=== PATIENT | female | born 1965 | race Caucasian/White ===

== ENCOUNTER 2025-01-09 07:10 | Outpatient (CLI) | payer OTHER, SELFPAY ==
[2025-01-09 08:01] LABS: Alanine Aminotransferase 22 U/L (6-35); Albumin Level 4.0 g/dL (3.5-5.1); Alkaline Phosphatase 159 U/L (38-126); Anion Gap 7 mmol/L (4-12); Aspartate Amino Transferase 35 U/L (14-36); Bilirubin,Total 0.4 mg/dL (0.2-1.3); Blood Urea Nitrogen 15 mg/dL (7-17); Calcium 9.5 mg/dL (8.4-10.2); Carbon Dioxide 25 mmol/L (22-30); Chloride 108 mmol/L (98-107); Cholesterol 227 mg/dL (0-200); Estimated Glomerular Filt Rate > 60; Glucose 100 mg/dL (65-110); HDL Direct 59 mg/dL; Potassium 3.7 mmol/L (3.4-5.0); Sodium 140 mmol/L (137-145); Total Protein 7.1 g/dL (6.3-8.2); Triglycerides 104 mg/dL (<150)
[2025-01-09 08:37] LABS: Thyroid Stimulating Hormone 0.065 uIU/mL (0.465-4.680)
[2025-01-09 08:59] LABS: Hemoglobin A1C 5.3 % (<5.7)
[2025-01-09 09:01] LABS: MALB Creatinine Ratio 8.4 mg/g (0-30)
== END 2025-01-09 07:11 | disposition home or self-care (01) ==
PROVIDERS: PCP Emergency Medicine; Visit Provider Emergency Medicine
DX: E78.5 Hyperlipidemia, unspecified (principal); E11.9 Type 2 diabetes mellitus without complications; Z13.220 Encounter for screening for lipoid disorders; Z13.6 Encounter for screening for cardiovascular disorders; E55.9 Vitamin D deficiency, unspecified; R53.83 Other fatigue; E78.00 Pure hypercholesterolemia, unspecified; R10.9 Unspecified abdominal pain
CPT/HCPCS: 36415; 80053; 80061; 82043; 82172; 82306; 83013; 83036; 83695; 84443

== ENCOUNTER 2025-02-05 09:52 | Outpatient (CLI) | payer OTHER, SELFPAY ==
--- NOTE | ~2025-02-05 | MM_ITS ---
EXAMINATION: MM screening burt BI w rocco HISTORY: Screening TECHNIQUE: Craniocaudal and mediolateral oblique 3-D tomosynthesis images were obtained and synthetic 2-D images were generated. CAD analysis was submitted and interpreted. COMPARISON: No prior mammogram is available for comparison at this institution. BREAST PARENCHYMAL COMPOSITION: The breasts are heterogeneously dense, which may obscure small masses. FINDINGS: There is no evidence of suspicious mass, calcification, or architectural distortion to suggest malignancy. IMPRESSION: 1. No mammographic evidence of malignancy. Recommend routine screening mammography in one year. BI-RADS Category 2: Benign finding(s) Reviewed, dictated and finalized at location Q. IMPRESSION: 1. No mammographic evidence of malignancy. Recommend routine screening mammogra phy in one year. BI-RADS Category 2: Benign finding(s)
--- OUTSIDE RECORDS SUMMARY | 2025-02-05 11:20 | XMS_ITS | Clinical Summary ---
Author Organization [facility] Address [address] [place] [phone] Phone Care Team Providers Care Assistant Chief Train Dispatcher Name Role Phone Neeta Lara MD Primary Care Provider [phone] Allergies Active Allergy Reactions Criticality Noted Date Comments Sulfamethoxazole-Trimethoprim Rash Medium 2018 Codeine Nausea only Low 08/22/2005 Medications multivitamin capsule Take 1 capsule by mouth daily Active levothyroxine (SYNTHROID) 112 mcg tabletIndications: Acquired hypothyroidism Take 1 tablet (112 mcg total) by mouth rn enterostomal before breakfast 90 tablet 2 4 Active citalopram (CeleXA) 20 mg tabletIndications: Anxiety Take 1 tablet (20 mg total) by mouth daily 90 tablet 2 4 Active albuterol HFA (PROVENTIL HFA,VENTOLIN HFA,PROAIR HFA) 90 mcg/actuation inhalerIndications :Mild intermittent asthma without complication Inhale 2 puffs every 4 (four) hours as needed for wheezing or shortness of breath 1 each 5 4 Active Active Problems Problem Noted Date Diagnosed Date Abnormal LFTs (liver function tests) 02/20/2019 Cysts of both ovaries 02/20/2019 Enlarged uterus 02/20/2019 Osteoarthritis 02/20/2019 Positive PPD, treated 02/20/2019 Depression with anxiety 02/20/2019 Elevated blood-pressure read ing, without diagnosis of hypertension 02/20/2019 Primary localized osteoarthrosis of ankle and fo ot 08/22/2005 Acquired hypothyroidism 03/04/2003 Allergic rhinitis 03/04/2003 Resolved Problems Problem Noted Date Diagnosed Date Resolved Date Abnormal urine 02/20/2019 02/20/2019 Other abnormal and inconclus jessica findings on diagnostic imaging of breast 02/20/2019 02/20/2019 Encounter for immunization 08/27/2015 1 Episodic mood disorder 11/17/201202/20 Anemia 01/12/2009 02/20/2019 Need for immunization against influenza 01/12/2009 02/20/2019 Abnormal weight gain 04/04/2007 019 Candidal vulvovaginitis 02/01/200701/24 Anxiety 08/22/2005 02/20/2019 Menstrual disorder 03/04/2003 9 Screening for malignant neoplasm of cervix 03/04/2003 02/20/2019 Immunizations Immunization Administration Dates Next Due Influenza, Unspecified 12/23/2022,2019,01/23/2019,2017 Pfizer SARS-CoV-2 Monovalent Vaccination (12+ Yrs) PURPLE 06/22/2021,05/04/2020,04/13/2020 Pneumococcal Conjugate Pcv20 12/21/2023 Tdap 08/27/2015 ZOSTER Recombinant 08/12/2020,02/20/2019 Surgical History Surgery Date Site/Laterality Comments SECTION section OTHER SURGICAL HISTORY Exc Cyst R shoulder 05/05/14 BREAST BIOPSY Right [id number] PT NOT SURE BREAST LUMPECTOMY Right lumpectomy Medical History Medical History Date Comments Arthritis Arthritis Hx Other Medical breast lumps Family History Medical History Relation Name Comments Alcohol abuse Brother 1 Heart disease Brother 2 Diabetes Father Lung cancer Father Bladder Cancer Maternal Grandfather No Known Problems Maternal Grandmother ho spitalized Heart disease Mother Hypertension Mother Stroke Paternal Grandfather Diabetes Paternal Grandmother Stroke Paternal Grandmother Breast cancer Neg Hx Endometrial cancer Neg Hx Ovarian cancer Neg Hx Thyroid cancer Neg Hx Relation Name Status Comments Brother 1 (Age 57) Brother 2 Alive Brother 3 Alive Brother 4 Alive Father (Age 80) Maternal Grandfather Maternal Grandmother Mother (Age 77) Paternal Grandfather Paternal Grandmother Sister Alive Social History Tobacco Use Types Packs/Day Years Used Date Smoking Tobacco: Never Smokeless Tobacco: Never Tobacco Cessation:Counseling Given: Not Answered Alcohol Use Standard Drinks/Week Comments Yes 0 (1 standard drink = 0.6 oz pur e alcohol) AUDIT-C Answer Date Recorded Q1: How often do you have a drink containing alc ohol? Monthly or less 12/21/2023 Q2: How many drinks containi ng alcohol do you have on a typical day when you are drinking? 1 or 2 12/21/2023 Q3: How often do you have si x or more drinks on one occasion? 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 Gender Identity Female 03/08/2021 2:48 PM ASSEMBLER KNIFE Sexual Orientation Not on file Obstetrics History Para Term AB IAB SAB Ectopic Multiple Livin g Live Births 2 2 2 Date Outcome GA Total Labor Labor/2nd/3rd Weight Sex Type Anes PTL Ruthie A1 A5 Name Clin Term Term Last Filed Vital Signs Vital Sign Reading Time Taken Comments Blood Pressure 130/80 12/21/2023 10:03 AM CDT Pulse 73 12/21/2023 10:03 AM CDT Temperature 36.8 C (98.3 F) 12/21/2023 10:03 AM CDT Respiratory Rate 20 12/21/2023 10:03 AM CDT Oxygen Saturation 96% 12/21/2023 10:03 AM CDT Inhaled Oxygen Concentration - - Weight 68.6 kg (151 lb 3.2 oz) 12/21/2023 10:03 AM CDT Height 155 cm (5' 1.02) 12/21/2023 10:03 AM CDT Body Mass Index 28.55 12/21/2023 10:03 AM CDT Plan of Treatment Health Maintenance Due Date Last Done Comments Hepatitis B Screening 1981 Cervical Cancer Screening 06/19/2020 06/19/2019, 10/2017 Colon Cancer Screening-DNA Stool 03/20/2022 03/20/20 19 Breast Cancer Screening-Mammogram 12/16/2022 12/16/2021, 05/13/2020, 03/01/2019, Additional history exists Depression Screening 12/20/2024 12/21/2023, 12/19/2022, 12/15/2021, Additional history exists Regular Well Visit/Exam 18-64 12/20/2024, 12/19/2022, 12/15/2021, Additional history exists Covid-19 Vaccine (4 - 2024-2 6 season) 2024 06/22/2021, 05/04/2020, 04/13/2020 Influenza Vaccine (#1) 2024 3, 12/23/2022, 01/27/2020, Additional history exists DTaP/Tdap/Td Vaccine (3 - Td or Tdap) 03/03/2029 03/03/2019, 08/27/2015 Hepatitis C Screening Completed 02/20/2019 Zoster Vaccine Completed 08/12/2020, 02/20/2019 Pneumococcal vaccine <65 Completed 12/21/2023 Procedures Procedure Name Priority Date/Time Associated Diagnosis Comments SCREENING MAMMOGRAM BILATERAL W SYLVESTER Schedule Routine, Read Routine (OP Routine) 12/16/2021 8:50 AM CDT Screening mammogram, encounter for HM PAP SMEAR WITH HPV Routine 06/19/2019 STOOL DNA COLOGUARD Routine 03/20/2019 HEPATITIS C ANTIBODY Routine 02/20/2019 10:28 AM CDT Annual physical exam Encounter for hepatitis C screening test for low risk patient from Last 3 Months or Most Recently Relevant to Health Maintenance Results * (ABNORMAL) Screening Mammogram Bilateral W Sylvester (12/16/2021 8:50 AM CDT) Anatomical Region Laterality Modality Breast Bilateral Mammography 12/16/2021 8:58 AM CDT Impressions 12/16/2021 8:58 AM CDT Right breast focal asymmetry. FINAL ASSESSMENT: BI-RADS Category 0: Incomplete - Need Additional Imaging Evaluation. RECOMMENDATION: Findings in the right breast require additional evaluation. Diagnostic mammogram and possible ultrasound images of the right breast are recommended at this time. Electronically signed by: Valente De Santiago II, D.O. Narrative 12/16/2021 8:58 AM CDT EXAMINATION: BILATERAL SCREENING MAMMOGRAM COMPARISON: Multiple prior studies, most recently 05/13/2020 and dating back to 10/08/2015. TECHNIQUE: Full-field 2D and digital breast tomosynthesis (DBT) images were obtained. CAD was utilized. BREAST PARENCHYMAL COMPOSITION: There are scattered areas of fibroglandular density. FINDINGS: There is no suspicious mass, calcification, or distortion in right breast. There is a focal asymmetry in the upper outer quadrant of the right breast approximately 4.9 cm in the nipple. There has been no significant interval change from the prior study. Self Screening Mammogram IMG MAMMO PROCEDURES Fi nal Result * PAP SMEAR WITH HPV (06/19/2019) Pap smear Normal Historical Provider HEALTH MAINTENANCE Final Result * Stool DNA - Cologuard (03/20/2019) Stool Andrea Dey NP LAB BODY FLUIDS AND STOOLS ORDERABLES Final Result * Hepatitis C antibody (02/20/2019 10:28 AM CDT) Hep C Ab Negative Negative MARIE SMITH Blood specimen (specimen) 02/20/2019 10:28 AM CDT 02/20/2019 11:06 AM CDT Andrea Dey NP LAB MICROBIOLOGY - GENERAL ORDERABLES Final Result MARIE [id number] [address] Department [place] [address] from Last 3 Months or Most Recently Relevant to Health Maintenance Insurance [employer] [place] Care Teams Assistant Chief Train Dispatcher Relationship Specialty Start Date End Date Neeta Lara MD [address] [place] [address] [address] [facility] [place] [address] PCP - General Internal Medicine 08/12/20
--- OUTSIDE RECORDS SUMMARY | 2025-02-05 11:20 | XMS_ITS | Encounter Summary ---
Author Organization [facility] Address [address] [place] [address] Phone Care Team Providers Care Group Director Name Role Phone Joseph Thompson MD Primary Care Provider [phone] Jacquelyn Saucedo NP Primary Care Provider [phone] Andrea Dey CHIEF SOLUTION ARCHITECT Primary Care Provi belén Neeta Lara MD Primary Care Provider [phone] Encounter Details Date Type Department Care Team (Late st Contact Info) Description 08/28/2017 Orders Only [facility] ProviderD[facility] MD [address] [place] [address] Social History Tobacco Use Types Packs/Day Years Used Date Smoking Tobacco: Never Alcohol Use Standard Drinks/Week Comments Yes 0 (1 standard drink = 0.6 oz pur e alcohol) Comments Unknown Sex and Gender Information Value Date Recorded Sex Assigned at Not on file Legal Sex Female 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 us Historical Provider LAB CYTOLOGY ORDERABLES F inal Result documented in this encounter Visit Diagnoses Not on filedocumented in this encounter Additional Health Concerns Infection Onset Date Last Indicated Resolved Time COVID: Suspected 11/04/2019 11/04/2019 11/06/2019 2:01 AM CDT Respiratory Infection (BRANDYN), contact + droplet Comment:Automatically added due to negative COVID-19 result. 11/06/2019 11/06/2019 11/20/2019 3:0 5 AM CDT documented as of this encounter Care Teams Group Director Relationship Specialty Start Date End Date Joseph Thompson MD [address] [place] [id number] PCP - General 06/06/14 01/27/19 Jacquelyn Saucedo NP [address] [place] [id number] PCP - General Family Medicine 01/28/19 02/19/19 Andrea Dey NP [address] [place] [address] PCP - General Family Practice 02/20/19 08/11/20 Neeta Lara MD [address] [place] [address], [place] [address] PCP - General Internal Medicine 08/12/20 documented as of this encounter
== END 2025-02-05 09:53 | disposition home or self-care (01) ==
PROVIDERS: PCP Emergency Medicine; Visit Provider Emergency Medicine
DX: Z12.31 Encounter for screening mammogram for malignant neoplasm of breast (principal)
CPT/HCPCS: 77063; 77067

== ENCOUNTER 2025-03-10 12:55 | Emergency (ER) | payer OTHER, SELFPAY ==
--- NOTE | ~2025-03-10 | XR_ITS ---
Examination: XR chest 2V Clinical History: chest pain Comparison: None Technique: PA and Lateral Findings: Cardiomediastinal silhouette normal size and configuration. Lungs clear. No acute bony abnormality. IMPRESSION: 1. No acute cardiopulmonary findings. Reviewed, dictated and finalized at location [facility] [employer]
--- NOTE | 2025-03-10 13:08 | ECG_ITS ---
Test Date: 2025-03-10 13:26:08 Measurements Intervals [place] Rate: 68 P: 41 NH: 172 QRS: -56 QRSD: 102 T: 145 QT: 414 QTc: 443 Interpretive Statements SINUS RHYTHM Poor R wave progression PROBABLE INFERIOR MYOCARDIAL INFARCTION , PROBABLY OLD [35 ms Q WAVE IN II/aVF] No previous ECG available for comparison Electronically Signed On 03-10-2025 13:59:10 SOLAR PROCESS ENGINEER by Brad Hathaway M.D.
[2025-03-10 13:12] VITALS: BP 150/95; PULSE 72; RESP 18; TEMP 36.4; O2SAT 99
--- NOTE | 2025-03-10 13:19 | ED_ITS ---
HPI - Chest Pain General Chief Complaint: Chest Pain <CORRINA Tafoya Last Filed: 03/10/25 13:29> Stated Complaint: chest pain today <CORRINA Tafoya Last Filed: 03/10/25 13:29> Time Seen by Provider: 03/10/25 13:10 <CORRINA Tafoya Last Filed: 03/10/25 13:29> Focused HPI: Patient is a 59 y/o female, with PMH of hypothyroidism, who presents to the ED with c/o CP. Patient reports she was at work around 8 am this morning when she developed substernal chest pain. Described as a pressure/squeezing sensation. Denies radiation of pain. Denies aggravating/alleviating factors, strenuous activity. Denies SOB, N/V, pain/swelling in legs. Denies hx of HTN, HLD, DM, smoking Hx. Reports hx of heart disease in her parents in their 70s. GENERAL: Well-appearing, well-nourished, and in no acute distress. HEAD: Normocephalic, atraumatic. CHEST: Clear to auscultation. ?No respiratory distress. HEART: Regular rate and rhythm.? NEURO: ?Alert and oriented x3. Patient screened in triage and initial orders placed.? ?Additional care and disposition to be based upon?diagnostic testing and treatment. <CORRINA Tafoya Last Filed: 03/10/25 13:29> Source: patient <CORRINA Tafoya Last Filed: 03/10/25 13:29> Mode of arrival: ambulatory <CORRINA Tafoya Last Filed: 03/10/25 13:29> Limitations: no limitations <CORRINA Tafoya Last Filed: 03/10/25 13:29> History of Present Illness HPI narrative: Agree with above HPI. <TAO Guerrero Last Filed: 03/10/25 19:03> Related Data Home Medications: Home Medications ?Medication ?Instructions ?Recorded ?Confirmed ?Last Taken ?Type albuterol sulfate 90 mcg/actuation 1 puff inhalation Q 6H PRN 12/19/24 01/03/25 Unknown History aerosol inhaler (Ventolin HFA) <Sari Martinez PA-C - Last Filed: 03/10/25 13:29> Allergies/Adverse Reactions: Allergies Allergy/AdvReac Type Severity Reaction Status Date / Time sulfamethoxazole (From Allergy Intermediate Rash Verified 01/03/25 10:28 Sept) trimethoprim (From ) Allergy Intermediate Rash Verified 01/03/25 10:28 <Sari Martinez PA-C - Last Filed: 03/10/25 13:29> Review of Systems 2 Review of Systems: All systems reviewed & are unremarkable except as noted in HPI and below <TAO Guerrero Last Filed: 03/10/25 19:03> PMFSH Past Medical History Medical History: Medical History Thyroid disorder Anxiety Allergies <CORRINA Tafoya Last Filed: 03/10/25 13:29> Surgical History Surgical History: Surgical History History of (~1990) &1997 <CORRINA Tafoya Last Filed: 03/10/25 13:29> Family History Family History: Family History Father History of cancer Mother Heart disease <Sari Martinez PA-C - Last Filed: 03/10/25 13:29> Social History Social History: Social History (Updated 01/03/25 @ 10:30 by Jennifer Chandler MA) Smoking status: Never smoker Alcohol intake: current Substance use: never Substance use type: does not use <CORRINA Tafoya Last Filed: 03/10/25 13:29> Exam 2 Narrative: GENERAL: Well-appearing, well-nourished, and in no acute distress. HEAD: Normocephalic, atraumatic. EYES: PERRLA and EOMI. ENT: Nares clear, no rhinorrhea or epistaxis. Mucous membranes moist. Oropharynx without tonsillar hypertrophy exudate or other lesions. Bilateral TMs pearly kelly non-bulging NECK: Supple. No adenopathy or masses. No carotid bruits or JVD CHEST: Clear to auscultation. No respiratory distress. No wheezes rales or rhonchi HEART: Regular rate and rhythm. No murmur heard. Normal peripheral pulses. ABDOMEN: Soft, nontender, nondistended, normal active bowel sounds. EXTREMITIES: Normal range of motion. No edema. SKIN: Warm, dry, no rash. NEURO: No focal deficits. Alert and oriented x3. PSYCH: Normal mood and affect <TAO Guerrero - Last Filed: 03/10/25 19:03> Course Vital Signs Vital signs: Vital Signs Temperature 97.6 F 03/10/25 13:12 Pulse Rate 72 03/10/25 13:12 Respiratory Rate 18 03/10/25 13:12 Blood Pressure 150/95 H 03/10/25 13:12 Pulse Oximetry 99 03/10/25 13:12 Oxygen Delivery Room Air 03/10/25 13:12 Temperature 97.8 F 03/10/25 14:51 Pulse Rate 72 03/10/25 18:15 Respiratory Rate 16 03/10/25 18:15 Blood Pressure 155/88 H 03/10/25 18:15 Pulse Oximetry 99 03/10/25 18:15 Oxygen Delivery Room Air 03/10/25 18:15 <Sari Martinez PA-C - Last Filed: 03/10/25 13:29> Vital Signs Temperature 97.6 F 03/10/25 13:12 Pulse Rate 72 03/10/25 13:12 Respiratory Rate 18 03/10/25 13:12 Blood Pressure 150/95 H 03/10/25 13:12 Pulse Oximetry 99 03/10/25 13:12 Oxygen Delivery Room Air 03/10/25 13:12 Temperature 97.8 F 03/10/25 14:51 Pulse Rate 72 03/10/25 18:15 Respiratory Rate 16 03/10/25 18:15 Blood Pressure 155/88 H 03/10/25 18:15 Pulse Oximetry 99 03/10/25 18:15 Oxygen Delivery Room Air 03/10/25 18:15 <TAO Guerrero - Last Filed: 03/10/25 19:03> MDM - Chest Pain MDM Narrative Medical decision making narrative: MSE by RICARDO in triage <Sari Martinez PA-C - Last Filed: 03/10/25 13:29> MSE by RICARDO in triage Patient is a 59 y/o female, with PMH of hypothyroidism, who presents to the ED with c/o CP. Patient reports she was at work around 8 am this morning when she developed substernal chest pain. Described as a pressure/squeezing sensation. Denies radiation of pain. Denies aggravating/alleviating factors, strenuous activity. Denies SOB, N/V, pain/swelling in legs. Denies hx of HTN, HLD, DM, smoking Hx. Reports hx of heart disease in her parents in their 70s. Patient's EKGs and labs are without significant high risk changes. EKG w/o acute ischemic changes. Troponin negative. Cardiac risk factors reviewed. HEART score = 2. Patient is felt likely low risk for ACS and reasonable for further risk stratification testing as an outpatient. Pain was not sudden or maximal in onset without tearing or ripping quality. No other signs or symptoms to suggest aortic dissection. A low-risk Wells criteria is noted, PE is felt to be unlikely. No pneumonia seen on evaluation today. Patient is felt to be a reasonable candidate for continued evaluation as an outpatient. Given reasons to return. <TAO Guerrero - Last Filed: 03/10/25 19:03> Medical Records Data Attestation: I reviewed the patient's medical records. <TAO Guerrero - Last Filed: 03/10/25 19:03> Lab Data Attestation: I reviewed the patient's lab results. <TAO Guerrero - Last Filed: 03/10/25 19:03> Result diagrams: 03/10/25 13:17 03/10/25 13:17 <Sari Martinez PA-C - Last Filed: 03/10/25 13:29> Labs: Lab Results 03/10/25 03/10/25 Range/Units 13:17 16:33 WBC 7.9 (4.5-10.0) K/mm3 RBC 5.01 (4.2-5.4) M/mm3 Hgb 14.3 (12.0-15.0) g/dL Hct 42.1 (37.0-47.0) % MCV 84.0 (80-100) fl MCH 28.5 (26-34) pg MCHC 34.0 (32-36) g/dl RDW 13.7 (11.5-14.5) % Plt Count 298 (150-375) k/mm3 MPV 9.1 (7.4-10.4) fl Immature Gran % (Auto) 0.4 (0-0.5) % Neut % (Auto) 62.2 (45.5-73.1) % Lymph % (Auto) 28.0 (18.3-44.2) % [place] % (Auto) 5.9 (2.6-8.5) % Eos % (Auto) 2.9 (0-4.4) % Baso % (Auto) 0.6 (0.2-1.2) % Lymph # (Auto) 2.22 (0.9-3.2) K/mm3 [place] # (Auto) 0.5 (0.1-0.6) K/mm3 Eos # (Auto) 0.2 (0-0.3) K/mm3 Baso # (Auto) 0.1 (0.0-0.1) K/mm3 Abs Immat Gran (auto) 0.03 (0.00-0.031) K/mm3 Absolute Neuts (auto) 4.9 (1.3-6.7) K/mm3 Absolute Nucleated RBC 0.000 (0.0-0.012) K/mm3 Nucleated RBC % 0.0 (0.0-0.2) % PT 11.8 (11.1-14.7) Seconds INR 0.8 APTT 27.3 (22.3-36.8) Seconds Sodium 142 (137-145) mmol/L Potassium 3.2 L (3.4-5.0) mmol/L Chloride 108 H (98-107) mmol/L Carbon Dioxide 24 (22-30) mmol/L Anion Gap 10 (4-12) mmol/L BUN 13 (7-17) mg/dL Creatinine 0.99 (0.7-1.0) mg/dL Estim Creat Clear Calc 49 ml/min Estimated GFR 57 L (59 - ) Glucose 75 (65-110) mg/dL Calcium 9.6 (8.4-10.2) mg/dL Total Bilirubin 0.4 (0.2-1.3) mg/dL AST 32 (14-36) U/L ALT 23 (6-35) U/L Alkaline Phosphatase 186 H (38-126) U/L Troponin I < 0.012 < 0.012 (0.000-0.034) ng/mL Total Protein 8.2 (6.3-8.2) g/dL Albumin 4.7 (3.5-5.1) g/dL Lipase 133 (23-300) U/L <Sari Martinez PA-C - Last Filed: 03/10/25 13:29> Lab Results 03/10/25 03/10/25 Range/Units 13:17 16:33 WBC 7.9 (4.5-10.0) K/mm3 RBC 5.01 (4.2-5.4) M/mm3 Hgb 14.3 (12.0-15.0) g/dL Hct 42.1 (37.0-47.0) % MCV 84.0 (80-100) fl MCH 28.5 (26-34) pg MCHC 34.0 (32-36) g/dl RDW 13.7 (11.5-14.5) % Plt Count 298 (150-375) k/mm3 MPV 9.1 (7.4-10.4) fl Immature Gran % (Auto) 0.4 (0-0.5) % Neut % (Auto) 62.2 (45.5-73.1) % Lymph % (Auto) 28.0 (18.3-44.2) % [place] % (Auto) 5.9 (2.6-8.5) % Eos % (Auto) 2.9 (0-4.4) % Baso % (Auto) 0.6 (0.2-1.2) % Lymph # (Auto) 2.22 (0.9-3.2) K/mm3 [place] # (Auto) 0.5 (0.1-0.6) K/mm3 Eos # (Auto) 0.2 (0-0.3) K/mm3 Baso # (Auto) 0.1 (0.0-0.1) K/mm3 Abs Immat Gran (auto) 0.03 (0.00-0.031) K/mm3 Absolute Neuts (auto) 4.9 (1.3-6.7) K/mm3 Absolute Nucleated RBC 0.000 (0.0-0.012) K/mm3 Nucleated RBC % 0.0 (0.0-0.2) % PT 11.8 (11.1-14.7) Seconds INR 0.8 APTT 27.3 (22.3-36.8) Seconds Sodium 142 (137-145) mmol/L Potassium 3.2 L (3.4-5.0) mmol/L Chloride 108 H (98-107) mmol/L Carbon Dioxide 24 (22-30) mmol/L Anion Gap 10 (4-12) mmol/L BUN 13 (7-17) mg/dL Creatinine 0.99 (0.7-1.0) mg/dL Estim Creat Clear Calc 49 ml/min Estimated GFR 57 L (59 - ) Glucose 75 (65-110) mg/dL Calcium 9.6 (8.4-10.2) mg/dL Total Bilirubin 0.4 (0.2-1.3) mg/dL AST 32 (14-36) U/L ALT 23 (6-35) U/L Alkaline Phosphatase 186 H (38-126) U/L Troponin I < 0.012 < 0.012 (0.000-0.034) ng/mL Total Protein 8.2 (6.3-8.2) g/dL Albumin 4.7 (3.5-5.1) g/dL Lipase 133 (23-300) U/L <TAO Guerrero - Last Filed: 03/10/25 19:03> Imaging Data Attestation: I personally reviewed and interpreted this imaging study as follows: < TAO Guerrero - Last Filed: 03/10/25 19:03> Radiologist's impression: ITS Impressions Chest X-Ray 03/10/25 14:10 IMPRESSION: 1. No acute cardiopulmonary findings. <TAO Guerrero - Last Filed: 03/10/25 19:03> ECG Data EKG #1: ECG completion date: 03/10/25 <TAO Guerrero Last Filed: 03/10/25 19:03> ECG completion time: 13:26 <TAO Guerrero - Last Filed: 03/10/25 19:03> EKG Interpretation: normal rate, sinus rhythm and no ST changes <TAO Guerrero - Last Filed: 03/10/25 19:03> EKG #2: ECG completion date: 03/10/25 <TAO Guerrero - Last Filed: 03/10/25 19:03> ECG completion time: 16:29 <TAO Guerrero - Last Filed: 03/10/25 19:03> EKG Interpretation: normal rate, sinus rhythm and no ST changes <TAO Guerrero - Last Filed: 03/10/25 19:03> Discharge Plan Discharge Clinical Impression: Chest pain <Sari Martinez PA-C - Last Filed: 03/10/25 13:29> Patient Disposition: Home <Sari Martinez PA-C - Last Filed: 03/10/25 13:29> Condition: Stable <Sari Martinez PA-C - Last Filed: 03/10/25 13:29> Instructions: Chest Pain (ED) <Sari Martinez PA-C - Last Filed: 03/10/25 13:29> Additional Instructions: Return to the emergency department if you experience fever, chest pain, shortness of breath, abdominal pain with nausea and vomiting, weakness, numbness/tingling, or any other symptoms that are concerning to you. Follow-up with Cardiology for further workup and treatment. Follow up with primary care doctor for any other general concerns. <Sari Martinez PA-C - Last Filed: 03/10/25 13:29> Patient Language: Gambian <Sari Martinez PA-C - Last Filed: 03/10/25 13:29> Prescriptions: No Action albuterol sulfate [Ventolin HFA] 90 mcg/actuation HFA aerosol inhaler 1 puff inhalation Q6H PRN levothyroxine [Synthroid] 75 mcg tablet 75 mcg PO DAILY Qty: 90 2RF citalopram 20 mg tablet 20 mg PO DAILY Qty: 90 2RF <Sari Martinez PA-C - Last Filed: 03/10/25 13:29> Follow-up/Referrals: Chandler Barakat MD [Physician, Cardiology] Chandler Murdock MD [Primary Care Provider, Internal Medicine] <Sari Martinez PA-C - Last Filed: 03/10/25 13:29> Quality HEART score for chest pain patients History: slightly suspicious <TAO Guerrero - Last Filed: 03/10/25 19:03> ECG: normal <TAO Guerrero - Last Filed: 03/10/25 19:03> Age: > 45 and < 65 years <TAO Guerrero - Last Filed: 03/10/25 19:03> Risk factors: 1 or 2 risk factors <TAO Guerrero - Last Filed: 03/10/25 19:03> Troponin: < or = to 1x normal limit <TAO Guerrero - Last Filed: 03/10/25 19:03> Heart score: 2 <TAO Guerrero - Last Filed: 03/10/25 19:03>
[2025-03-10 13:35] LABS: Hematocrit 42.1 % (37.0-47.0); Hemoglobin 14.3 g/dL (12.0-15.0); Immature Granulocyte Percent A 0.4 % (0-0.5); Lymphocytes Absolute Auto 2.22 K/mm3 (0.9-3.2); Mean Corpuscular HGB Conc 34.0 g/dl (32-36); Mean Corpuscular Hemoglobin 28.5 pg (26-34); Mean Corpuscular Volume 84.0 fl (80-100); Nucleated Red Blood Cells Absolute Auto 0.000 K/mm3 (0.0-0.012); Nucleated Red Blood Cells Perc 0.0 % (0.0-0.2); Platelet Count Result 298 k/mm3 (150-375); Red Blood Count 5.01 M/mm3 (4.2-5.4); White Blood Count 7.9 K/mm3 (4.5-10.0)
[2025-03-10 13:47] LABS: Alanine Aminotransferase 23 U/L (6-35); Albumin Level 4.7 g/dL (3.5-5.1); Alkaline Phosphatase 186 U/L (38-126); Anion Gap 10 mmol/L (4-12); Aspartate Amino Transferase 32 U/L (14-36); Bilirubin,Total 0.4 mg/dL (0.2-1.3); Blood Urea Nitrogen 13 mg/dL (7-17); Calcium 9.6 mg/dL (8.4-10.2); Carbon Dioxide 24 mmol/L (22-30); Chloride 108 mmol/L (98-107); Estimated CRCL calculation 49 ml/min; Estimated Glomerular Filt Rate 57; Glucose 75 mg/dL (65-110); INR 0.8; Lipase 133 U/L (23-300); Partial Thromboplastin Time 27.3 Seconds (22.3-36.8); Potassium 3.2 mmol/L (3.4-5.0); Prothrombin Time 11.8 Seconds (11.1-14.7); Sodium 142 mmol/L (137-145); Total Protein 8.2 g/dL (6.3-8.2)
[2025-03-10 13:58] LABS: Troponin I < 0.012 ng/mL (0.000-0.034)
[2025-03-10 14:51] VITALS: BP 142/82; PULSE 71; RESP 18; TEMP 36.6; O2SAT 97
--- NOTE | 2025-03-10 16:01 | ECG_ITS ---
Test Date: 2025-03-10 16:29:40 Measurements Intervals [place] Rate: 63 P: 33 IL: 179 QRS: -21 QRSD: 105 T: 53 QT: 428 QTc: 440 Interpretive Statements SINUS RHYTHM LEFTWARD AXIS NONSPECIFIC T-WAVE ABNORMALITY Electronically Signed On 03-10-2025 20:04:31 [facility] BILL[facility] by Tony Beltre D.O
[2025-03-10 16:37] VITALS: BP 156/95; PULSE 62; RESP 18; O2SAT 99
[2025-03-10 17:14] LABS: Troponin I < 0.012 ng/mL (0.000-0.034)
[2025-03-10 18:15] VITALS: BP 155/88; PULSE 72; RESP 16; O2SAT 100; O2SAT 99
== END 2025-03-10 19:03 | disposition home or self-care (01) ==
PROVIDERS: Emergency Medicine; PCP Emergency Medicine
DX: R07.89 Other chest pain (principal); E03.9 Hypothyroidism, unspecified; F41.9 Anxiety disorder, unspecified; Z79.899 Other long term (current) drug therapy; R94.31 Abnormal electrocardiogram [ECG] [EKG]
CPT/HCPCS: 36415; 71046; 80053; 83690; 84484; 85025; 85610; 85730; 93005; 99284